=== PATIENT | male | born 1995 | race Caucasian/White ===

== ENCOUNTER 2024-05-07 08:42 | Emergency (ER) | payer OTHER, SELFPAY ==
[2024-05-07 08:47] VITALS: BP 148/88; PULSE 99; TEMP 37.3; O2SAT 100; BMI 27.3
--- NOTE | 2024-05-07 09:01 | US_ITS ---
The [address] [address] Patient Name: CALI LOPEZ MRN: [id number] date: 1995 Sex: M Assigned Patient Location: ER Current Patient Location: ER Accession/Order Number: [id number] Exam Date: 05/07/2024 09:01 Report Date: 05/07/2024 13:24 At the request of: REHKA SARAVIA Procedure: US scrotum doppler EXAM: US scrotum doppler HISTORY: Right testicular pain and swelling COMPARISON: None. TECHNIQUE: Scrotal ultrasound with grayscale and Doppler imaging. FINDINGS: Normal size appearance of the testicles with normal symmetric blood flow. No focal lesion, edema or evidence of torsion. Right testicle 4.4 x 2.9 x 4.2 cm. Left testicle 4.1 x 3.8 x 4.3 cm. Abnormal heterogeneous appearance right left epididymis with increased flow consistent with epididymitis. Graft no varicocele or hydrocele or hernia seen. US/US scrotum doppler IMPRESSION: 1. Normal appearance and symmetric blood flow within the testicles, no lesion or evidence of torsion.. 2. Hypervascular right and left epididymis consistent with epididymitis. Electronically authenticated by: KIMBERLEE HARRINGTON Date: 05/07/2024 13:24
--- NOTE | 2024-05-07 09:02 | ED.MALEGU1 ---
HPI - Male Genitourinary General Chief complaint: Urogenital-Male Stated complaint: GROIN PAIN Time Seen by Provider: 05/07/24 08:57 Source: patient Mode of arrival: walk-in Limitations: no limitations History of Present Illness HPI Narrative: 29-year-old male presents for scrotal pain and swelling. Both sides hurt but the right side feels swollen. There is been no trauma. He has had epididymitis in the past and is concerned about having that again. No fever or dysuria or back pain. No vomiting. Related Data Previous Rx's ?Medication ?Instructions ?Recorded acetaminophen 300 mg-codeine 30 mg 1 tab PO Q6H PRN pain 5 days #20 05/07/24 tablet tabs doxycycline hyclate 100 mg capsule 100 mg PO BID 10 days #20 caps 05/07/24 ibuprofen 800 mg tablet 800 mg PO Q8H PRN pain #20 tabs 05/07/24 Allergies Allergy/AdvReac Type Severity Reaction Status Date / Time No Known Drug Allergies Allergy Verified 05/07/24 08:50 Review of Systems ROS Narrative A ten point review of systems is negative except as noted above. Exam Narrative Exam Narrative: Nurses note and vital signs reviewed and patient is not hypoxic. General: The patient appears well and in no apparent distress. Skin: Warm, dry, no pallor noted. There is no rash noted. Head: Normocephalic, atraumatic Eye: Normal conjunctiva, no drainage Ears, Nose, Mouth, and Throat: oral mucosa is moist. Nares patent. Cardiovascular: Regular Rate and Rhythm Respiratory: Patient is in no distress, no accessory muscle use, lungs are clear to auscultation, no wheezing, rales or rhonchi Back: non-tender GI: Soft and nontender. No inguinal adenopathy : He has mild swelling in the right hemiscrotal area with tenderness. No skin rash. Musculoskeletal: The patient has no evidence of calf tenderness, no pitting edema, symmetrical pulses noted bilaterally Neurological: A&O, normal speech Psychiatric: Cooperative Constitutional Vital Signs, click to edit/add: Last Vital Signs Temp 99.5 F 05/07/24 13:17 Pulse 82 05/07/24 13:17 Resp 16 05/07/24 13:17 BP 115/62 05/07/24 13:17 Pulse Ox 99 05/07/24 13:17 O2 Del Method Room Air 05/07/24 08:47 Course Vital Signs Vital signs: Vital Signs Temperature 99.2 F 05/07/24 08:47 Pulse Rate 99 H 05/07/24 08:47 Respiratory Rate 18 05/07/24 08:47 Blood Pressure 148/88 H 05/07/24 08:47 Pulse Oximetry 100 05/07/24 08:47 Oxygen Delivery Method Room Air 05/07/24 08:47 Temperature 99.5 F 05/07/24 13:17 Pulse Rate 82 05/07/24 13:17 Respiratory Rate 16 05/07/24 13:17 Blood Pressure 115/62 05/07/24 13:17 Pulse Oximetry 99 05/07/24 13:17 Oxygen Delivery Method Room Air 05/07/24 08:47 MDM - Male Genitourinary MDM Narrative Medical decision making narrative: Bilateral epididymitis is identified. The patient states that he has no concern of an STD. Urinary probes are ordered and pending. He is placed on doxycycline and was referred to urology if symptoms do not improve. He has had epididymitis previously. Treatment diagnosis and follow-up were discussed thoroughly with the patient. Differential Diagnosis Differential diagnosis: Likely urinary tract infection, epididymitis and other (Testicular torsion) Lab Data Attestation: I reviewed the patient's lab results. Labs: Lab Results 05/07/24 05/07/24 Range/Units 09:10 09:36 WBC 12.6 H (4.0-11.0) 10^3/uL RBC 4.67 L (4.70-6.10) 10^6/uL Hgb 14.6 (14.0-18.0) g/dL Hct 41.9 L (42.0-54.0) % MCV 89.7 (80.0-94.0) fL MCH 31.3 (25.9-34.0) pg MCHC 34.8 (29.9-35.2) g/dL RDW 12.3 (11.0-15.0) % Plt Count 285 (150-450) 10^3/uL MPV 9.6 (9.5-13.5) fL Neut % (Auto) 80.3 H (43.0-75.0) % Lymph % (Auto) 9.8 L (20.5-60.0) % [place] % (Auto) 9.3 (1.7-12.0) % Eos % (Auto) 0.2 L (0.9-7.0) % Baso % (Auto) 0.2 (0.2-2.0) % Neut # (Auto) 10.1 H (1.4-6.5) 10^3/uL Lymph # (Auto) 1.2 (1.2-3.8) 10^3/uL Maries # (Auto) 1.2 H (0.3-0.8) 10^3/uL Eos # (Auto) 0.0 (0.0-0.7) 10^3/uL Baso # (Auto) 0.0 (0.0-0.1) 10^3/uL Abs Immat Gran (auto) 0.03 (0.00-0.03) 10^3/uL Imm/Tot Granulo (auto) 0.2 (0.0-0.5) % Sodium 139 (136-145) mmol/L Potassium 3.7 (3.5-5.1) mmol/L Chloride 100 (98-107) mmol/L Carbon Dioxide 27.0 (21.0-32.0) mmol/L Anion Gap 15.7 BUN 11.0 (7.0-18.0) mg/dL Creatinine 1.05 (0.70-1.30) mg/dL Est GFR ( Amer) >60 (>=60) Est GFR (Non-Af Amer) >60 (>=60) BUN/Creatinine Ratio 10.5 Glucose 81 (74-106) mg/dL Calcium 9.4 (8.5-10.1) mg/dL Urine Color Dk. yellow (YELLOW) Urine Clarity Clear (CLEAR) Urine pH 6.5 (5.0-9.0) Ur Specific [place] 1.025 (1.005-1.025) Urine Protein Trace (NEG/TRACE) mg/dL Urine Glucose (UA) Negative (NEGATIVE) mg/dL Urine Ketones Negative (NEGATIVE) mg/dL Urine Occult Blood Negative (NEGATIVE) Urine Nitrite Negative (NEGATIVE) Urine Bilirubin Negative (NEGATIVE) Urine Urobilinogen 0.2 (0.2-1.0) EU/dL Ur Leukocyte Esterase Negative (NEGATIVE) Urine RBC 0-2 (0-2) #/HPF Urine WBC 2-5 A (NONE SEEN) #/HPF Ur Squamous Epith Cells None seen (NONE/RARE) #/LPF Urine Crystals None seen (None Seen) #/HPF Urine Bacteria Trace A (NONE SEEN) #/HPF Urine Casts None seen (NONE SEEN) #/LPF Urine Mucus Moderate A (NONE SEEN) Imaging Data Scrotal ultrasound: Radiologist's impression: ITS Impressions Scrotum Ultrasound 05/07/24 09:01 IMPRESSION: 1. Normal appearance and symmetric blood flow within the testicles, no lesion or evidence of torsion.. 2. Hypervascular right and left epididymis consistent with epididymitis. Electronically authenticated by: KIMBERLEE HARRINGTON Date: 05/07/2024 13:24 Discharge Plan Discharge Stand Alone Forms: Portal Instructions Chief Complaint: Urogenital-Male Clinical Impression: Acute epididymitis Patient Disposition: Home, Self-Care Time of Disposition Decision: 13:38 Condition: Good Mode of Transportation: Private Vehicle Prescriptions / Home Meds: New doxycycline hyclate 100 mg capsule 100 mg PO BID 10 Days Qty: 20 0RF acetaminophen-codeine 300-30 mg tablet 1 tab PO Q6H PRN (Reason: pain) 5 Days Qty: 20 0RF ibuprofen 800 mg tablet 800 mg PO Q8H PRN (Reason: pain) Qty: 20 0RF Print Language: Icelandic Instructions: Epididymitis (ED) Referrals: Physician,Non-Staff, MD [Primary Care Provider] - 1 week Roque Washington MD [Physician] - As needed
[2024-05-07 09:35] LABS: Bilirubin Urine NEGATIVE (NEGATIVE); Blood Urine NEGATIVE (NEGATIVE); Clarity Urine CLEAR (CLEAR); Color Urine DK. YELLOW (YELLOW); Glucose Urine UA NEGATIVE (NEGATIVE); Ketones Urine NEGATIVE (NEGATIVE); Leukocyte Esterase Urine NEGATIVE (NEGATIVE); Nitrite Urine NEGATIVE (NEGATIVE); Protein Urine TRACE mg/dL (NEG/TRACE); Specific Gravity Urine 1.025 (1.005-1.025); Urobilinogen Urine 0.2 EU/dL (0.2-1.0); pH Urine 6.5 (5.0-9.0)
[2024-05-07 09:43] LABS: Bacteria Urine TRACE #/HPF (NONE SEEN); Mucus Urine MODERATE (NONE SEEN); RBC Urine 0-2 #/HPF (0-2)
[2024-05-07 09:44] LABS: Basophils Percent Auto 0.2 % (0.2-2.0); Eosinophils Percent Auto 0.2 % (0.9-7.0); Hematocrit 41.9 % (42.0-54.0); Hemoglobin 14.6 g/dL (14.0-18.0); Immature Granulocytes Abs Auto 0.03 10^3/uL (0.00-0.03); Immature Granulocytes Pct Auto 0.2 % (0.0-0.5); Lymphocytes Absolute Auto 1.2 10^3/uL (1.2-3.8); Lymphocytes Percent Auto 9.8 % (20.5-60.0); Mean Corpuscular HGB Conc 34.8 g/dL (29.9-35.2); Mean Corpuscular Hemoglobin 31.3 pg (25.9-34.0); Mean Corpuscular Volume 89.7 fL (80.0-94.0); Mean Platelet Volume 9.6 fL (9.5-13.5); Monocytes Absolute Auto 1.2 10^3/uL (0.3-0.8); Monocytes Percent Auto 9.3 % (1.7-12.0); Neutrophils Absolute Auto 10.1 10^3/uL (1.4-6.5); Neutrophils Percent Auto 80.3 % (43.0-75.0); Platelet Count 285 10^3/uL (150-450); Red Blood Count 4.67 10^6/uL (4.70-6.10); Red Cell Distribution Width 12.3 % (11.0-15.0); White Blood Count 12.6 10^3/uL (4.0-11.0)
[2024-05-07 09:44] LABS: Cast Seen? NONE SEEN #/LPF (NONE SEEN); Crystals Seen? None Seen #/HPF (None Seen)
[2024-05-07 09:46] LABS: Squamous Epithelial Cell Urine NONE SEEN #/LPF (NONE/RARE)
[2024-05-07 10:04] LABS: Anion Gap 15.7; BUN Creatinine Ratio 10.5; Calcium 9.4 mg/dL (8.5-10.1); Chloride 100 mmol/L (98-107); Estimated GFR (African America >60 (>=60); Estimated GFR (Non-African Ame >60 (>=60); Glucose 81 mg/dL (74-106); Potassium 3.7 mmol/L (3.5-5.1); Sodium 139 mmol/L (136-145)
[2024-05-07 11:55] VITALS: BP 133/68; PULSE 85; O2SAT 100
[2024-05-07] MEDS: IBUPROFEN 400 MG TABLET 800 MG PO (12:11)
[2024-05-07 13:17] VITALS: BP 115/62; PULSE 82; TEMP 37.5; O2SAT 99
[2024-05-07] MEDS: DOXYCYCLINE MONOHYDRATE 100 MG CAPSULE PO (13:44)
[2024-05-09 21:11] LABS: Neisseria gonorrhoeae, NAA Negative (Negative)
== END 2024-05-07 13:51 | disposition home or self-care (01) ==
PROVIDERS: Emergency Provider Emergency Medicine
DX: N45.1 Epididymitis (principal)
CPT/HCPCS: 36415; 76870; 80048; 81001; 85025; 87491; 87591; 93976; 99285

== ENCOUNTER 2025-08-17 07:53 | Outpatient (OUT) | payer OTHER, SELFPAY ==
--- OUTSIDE RECORDS SUMMARY | 2025-08-17 07:56 | XMS_ITS | CCD ---
Author Organization [facility] Care Team Providers Care Maint Mechanic Name Role Phone Surendra Oliveira Unavailable GUANAKITO LEWIS Primary Care Physician TEE, DR CHANDLER Attending Unavailable TEE, DR CHANDLER Consulting Unavailable TEE, DR CHANDLER Admitting Unavailable TEE, DR CHANDLER Attending Unavailable TEE, DR CHANDLER Consulting Unavailable TEE, DR CHANDLER Admitting Unavailable SURENDRA OLIVEIRA Primary Care Physician [phone] Roque WASHINGTON Attending Unavailable WASHINGTON, Roque Medina Admitting Unavailable WASHINGTON, Roque Medina Attending Unavailable WASHINGTON, Roque Medina Attending Unavailable WASHINGTON, Roque Medina Admitting Unavailable WASHINGTON, Roque Medina Attending Unavailable WASHINGTON, Roque Medina Attending Unavailable WASHINGTON, Roque Medina Attending Unavailable WASHINGTON, Roque Medina Admitting Unavailable WASHINGTON, Roque Medina Attending Unavailable Allergies Allergy ClassificationReported Allergen(s)Allergy TypeDate of OnsetReaction(s) Facility (3 sources)No Known Medication Allergies; Translations: [No Known Medication Allergies]Propensity to adverse reactions (disorder)[facility] Medications Current Medications MedicationDrug Class(es)DatesSig (Normalized)Sig (Original)aluminum chloride 200 mg/ml topical solution (4 sources)Start: 81-44-7616Bdyiza 20 % 1 application at bedtime Externally q HS x 3 days then twice weekly for 30 days Activecephalexin 500 mg oral capsule (1 source)Cephalosporin AntibacterialStart: 07-20-2025 End: 61-82-2202ktqu 1 capsule by mouth every twelve hoursKeflex 500 mg Cap 500 mg = 1 cap(s), Oral, q12hr, Start morning of the procedure., X 5 day(s), # 10 cap(s), Refills(s) 0, Pharmacy: [facility]/pharmacy #[id number], 177, cm, 07/20/25 10:11:00 EDT, Height/Length Dosing, 91.7, kg, 07/20/25 10:11:00 EDT, Weight Dosing Start Date: 07/20/25 Stop Date: 07/25/25 Status: Ordered Quantity: 10.0 Unit: cap(s) Repeat number: 1predniSONE 20 mg oral tablet (1 source)Start: 91-04-8084khqyfrPVVC 20 MG 1 tablet tid w/ food x 2 days then bid w/ food x 2 days then qd w/ food x 2 days Orally as directed for 6 days Apr, ActivetiZANidine 4 mg oral tablet (1 source)Central alpha-2 Adrenergic AgonistStart: 45-82-0033akJUKujwzf HCl 4 MG 1/2 - 1 Orally every 8 hours as needed, may cause sedation for 5 days Apr, Active Problems Problem ClassificationProblemDateDocumented DateEpisodic/ChronicContraceptive and procreative management (1 source)Contraception status; Translations: [Encounter for other general counseling and advice on contraception]Onset: 27-19-9171GnxospvcGacyhxahddfhw symptoms and ill-defined conditions (1 source)Microscopic hematuria; Translations: [Other microscopic hematuria] Onset: 50-54-5600BmeczizdVvlvplty; including migraine (4 sources)Migraine; Translations: [Migraine, unspecified, not intractable, without status migrainosus]ChronicMalaise and fatigue (5 sources)Other fatigue; Translations: [OTHER FATIGUE]Onset: 69-67-2291Afsffvud Other endocrine disorders (1 source)Testicular hypofunction; Translations: [Testicular hypofunction]Onset: 08-26-6122AvwcihqYaorg male genital disorders (2 sources)Vwwzkuzcv71-07-0515AonjexoTnpkp male genital disorders (2 sources)H/O: male genital disorder; Translations: [Personal history of other diseases of male genital organs]Onset: 96-16-4198IejshwwyWpzel nutritional; endocrine; and metabolic disorders (1 source)OverweightEpisodicOther skin disorders (1 source)Primary focal hyperhidrosis, axillaEpisodicOther upper respiratory disease (4 sources)Allergic rhinitis due to pollen; Translations: [Allergic rhinitis due to pollen]ChronicResidual codes; unclassified (2 sources)Reduced nhgeeg49-55-3788ZdhqshzgQgkxbjxcadb; intervertebral disc disorders; other back problems (2 sources)Acute back pain with sciatica; Translations: [Lumbago with sciatica, left side]EpisodicSprains and strains (4 sources)Strain of muscle, fascia and tendon of the posterior muscle group at thigh level, left thigh, initial encounter; Translations: [Tear of left hamstring, initial encounter]Episodic Results Test NameValueInterpretationReference RangeFacilityC Urineon 67-72-5965Ziapelwn identified Cx Nom (U)Microbiology PROCEDURE: Urine Culture [R1] SOURCE: U CleanCatch BODY SITE: COLLECTED DATE/TIME: 07/20/2025 11:20 EDT RECEIVED DATE/TIME: 07/20/2025 17:40 EDT START DATE/TIME: 07/20/2025 17:40 EDT FREE TEXT SOURCE: KOLE ESTRADA, Roque WASHINGTON MD, Roque Medina FINAL REPORTS Final Report [] Verified Date/Time: 07/22/2025 09:21 EDT 500 cfu/ml Mixed skin contaminants Performing Locations R1: This test was performed at: [facility], [address] [place] [address], [address] , , VcpzgrUadnhvSumma Health Akron CampusComment on above:Performed By: #### [id number] #### [facility] [address] [place] [address]Eflzcvm Totalon 73-02-0834Wjhfybqrd Xfy237 ng/dLInvalid Interpretation Ndqp301-991CgfluaGlenbeigh HospitalComment on above:Result Comment: Adult male reference interval is based on a population of healthy nonobese males (BMI <30) between 19 and 39 years old. Cristina et.al. JCEM 2017,102;0247-1378. PMID: [id number]. Performed at: [facility] [address] [place] [address] [id number] PhD Rolando JerryPerformed By: #### [id number] #### [facility] [address] [place] [address]Ozxxhtqhwq with Microon 28-71-5322Xceaw (U)YellowNormalYellow [facility] HospitalComment on above:Order Comment: Order added by Astrid ExpertResult Comment: Microscopic readings are only performed on those samples that meet specific criteria set forth by [facility].Performed By: #### [id number] #### [facility] [address], [place] [address]Zhbwbnb (U) [Mass/Vol]NegativeNormalNegativeGlenbeigh HospitalComment on above:Order Comment: Order added by Astrid Expert Performed By: #### [id number] #### [facility] [address] [place], [place] [address]Funknuh Ql (U)NegativeNormalNegWadsworth-Rittman Hospital Comment on above:Order Comment: Order added by Astrid ExpertPerformed By: #### [id number] #### [facility] [address], [place] [address]JC Blood1+ mg/dLAbnormSelect Medical Specialty Hospital - Columbus Comment on above:Order Comment: Order added by Astrid ExpertPerformed By: #### [id number] #### [facility] [address] [place], [place] [address]QN ClarityClearNormalClearGlenbeigh HospitalComment on above:Order Comment: Order added by Astrid ExpertPerformed By: #### [id number] #### [facility] [address], [place] [address]XC Leuk EstNegativeNormalNegWadsworth-Rittman Hospital Comment on above:Order Comment: Order added by Astrid ExpertPerformed By: #### [id number] #### [facility] [address], [place] [address]SQ Mucous2+ CD:[id number] [facility]itus Medical CenterComment on above:Order Comment: Order added by Astrid ExpertPerformed By: #### [id number] #### [facility] [address], [place] [address]TK NitriteNegativeNormalNegativeG[facility]beigh Hospital Comment on above:Order Comment: Order added by Astrid ExpertPerformed By: #### [id number] #### [facility] [address], [place] [address]KR pH5.5Invalid Interpretation Code5.0-9.0[facility]igh HospitalComment on above:Order Comment: Order added by Astrid ExpertPerformed By: #### [id number] #### [facility] [address] [place], [place] [address]QF ProteinTraceAbnormalNegativeGlenbeigh Hospital Comment on above:Order Comment: Order added by Astrid ExpertPerformed By: #### [id number] #### [facility] [address] [place] [address]CI GPI9-42Vevihwlf4-0Exkjta Thomas B. Finan CenterComment on above:Order Comment: Order added by Astrid ExpertPerformed By: #### [id number] #### [facility] [address], [place] [address]XJ Spec Grav1.025Invalid Interpretation Code1.005-1.030G[facility]igh HospitalComment on above:Order Comment: Order added by Astrid ExpertPerformed By: #### [id number] #### [facility] [address], [place] [address]GH Squam Epithelial0-2Invalid Interpretation CodeGlenbeigh HospitalComment on above:Order Comment: Order added by Astrid Expert Performed By: #### [id number] #### [facility] [address], [place] [address]TK UrobilinogenNegativeNormalNegativeGlenbeigh HospitalComment on above:Order Comment: Order added by Astrid ExpertPerformed By: #### [id number] #### [facility] [address], [place] [address]FZ SFG8-4Tiwnei3-6XwvplmBethesda North HospitalComment on above: Order Comment: Order added by Astrid ExpertPerformed By: #### [id number] #### [facility] [address], [place] [address]Wehiguamornb (U) [Mass/Vol]NegativeNormalNegativeGlenbeigh HospitalComment on above:Order Comment: Order added by Astrid Expert Performed By: #### [id number] #### [facility] [address], [place] [address]Ubrxkqqqmk with Micro SPon 99-07-2292HN Spec DescClean Catch NormalGlenbeigh HospitalComment on above:Performed By: #### [id number] #### [facility] [address] [place], [place] [address]Lwywsvl Office/Clinic Noteon 68-76-0484Kekeqwx Office/Clinic NoteUrology Office/Clinic Note Chief Complaint vasectomy HPI Staff 30 yr old male here for vasectomy consult. hx of epididymitis- about 2 yrs ago, burning w/ urination a few times. no issues since, did finish abx Pt. denies having incontinence Pt. denies having pain with urination recently Pt. denies having gross hematuria Pt. denies having abd pain Pt. denies having flank pain pt has 2 biological children, 9 yrs and 2 weeks old, pt has 2 other children he cares for with his partner History of Present Illness Tests reviewed: UA I have reviewed the previous health record information and history for this patient. I have reviewed and verified the staff HPI to be accurate for this encounter. Review of Systems PHQ Score Initial Depression Screen Score: 0 SCORE ROS - Provider Constitutional: denies weight loss, denies hot flashes. Eyes: denies eye problems. Gastrointestinal: denies nausea, denies vomiting. Cardiovascular: denies chest pain or angina. Integumentary: no dryness Musculoskeletal: denies musculoskeletal symptoms. ENMT: denies otolaryngeal symptoms. Respiratory: no shortness of breath. Heme/Lymph: denies easy bleeding tendency, denies easy bruising tendency. Psychiatric: no confusion, no anxiety. Genitourinary: See HPI. Physical Exam Vitals & Measurements T: 36.4 ???C(Tympanic) HR: 90(Peripheral) RR: 16 BP: 140/100 HT: 70 in HT: 177 cm WT: 202.164 lb WT: 91.7 kg BMI: 29.27 General Appearance: alert, no distress, well nourished, well developed adult. : wnl. able to isolate both vas deferens. Assessment/Plan Renu is a 30 yo male new pt here for vasectomy consultation. Pt accompanied by an adult female today. MARY 20. IPSS 0. 1. Encounter for vasectomy counseling (Z30.09: Encounter for other general counseling and advice oncontraception) UA neg. Pt has 2 children. Educational pamphlet provided. PE: wnl. able to isolate both vas deferens. -Will schedule Vasectomy. The procedural risks, benefits, details, and treatment alternatives of sterilization have been discussed with the patient today. He understands this procedure is considered permanent, even though vasectomy reversals can be performed. There is no guarantee of successful reversal resulting in , however. Risks discussed include bleeding, infection, failure with in about 1:2500, post-vasectomy syndrome (chronic pain in the testicle or scrotum), and erection problems, among others. Despite these risks, he wishes to proceed. He also understands that he is not considered sterile until a negative semen sample has been received after about 2-3 months after the vasectomy. Full informed consent has been obtained. Will order Local anesthesia. Prophylactic abx and other meds sent to [facility]. Will need haulpak driver if Valium is taken. 2. Microhematuria (R31.29: Other microscopic hematuria) UA shows moderate blood wo signs of infection. Denies gross hematuria. No smoking hx. -Send urine for micro and cx 3. History of epididymitis (Z87.438: Personal history of other diseases of male genital organs) Two yrs ago, burning w urination. Sx resolved with abx. No issues since. 4. 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 Reports a yr ago his T level was low. Will repeat today. -T level to be drawn IO today (around 11:30 am) Follow-up With When Contact Information KOLE ESTRADA, Roque Medina, [facility] [address], [place] [address]- Additional Instructions: schedule Vasectomy Patient Education Contraception Choices I, Sharla Trent, personally scribed for Dr. Washington on 07/20/2025 11:17:05. . Documentation recorded by the scribe, Sharla Trent, accurately reflects the services(s) I performed and decisions made by me. Authenticated by Dr. Washington on 07/20/2025 11:25:02. Problem List/Past Medical History Ongoing Decreased libido Erectile dysfunction History of epididymitis Historical No qualifying data Medications No active medications Allergies No Known Medication Allergies Social History Alcohol Never., 07/19/2025 Substance Abuse Never., 07/19/2025 Tobacco - No Risk, 02/11/2023 Never (less than 100 in lifetime) Tobacco Use:. Never Smokeless Tobacco Use:., 07/20/2025 Family History Family history is negative Lab Results Ambulatory Point of Care Results Bilirubin Urine Dipstick: Negative (07/20/25 10:15:00) Blood Urine Dipstick: 2+ Moderate (07/20/25 10:15:00) Glucose Urine Dipstick: Negative (07/20/25 10:15:00) Ketones Urine Dipstick: Negative (07/20/25 10:15:00) Leukocytes Urine Dipstick: Negative (07/20/25 10:15:00) Nitrite Urine Dipstick: Negative (07/20/25 10:15:00) Protein Urine Dipstick: 1+ (30 mg/dl) (07/20/25 10:15:00) Specific [place] Urine Dipstick: 1.025 (07/20/25 10:15:00) Urine Appearance Urine Dipstick: Clear (07/20/25 10:15:00) Urine (more content not included)...[facility] CenterComment on above:Result Comment: Electronically Signed By: Roque WASHINGTON MD\.br\Date and Time Signed: 07/20/25 11:25 EDT\.br\Electronically Co-Signed By: Sharla Trent\.br\Date and Time Co-Signed: 07/20/25 11:17 EDT\.br\Electronically Co- Signed By: Sharla Trent\.br\Date and Time Co-Signed: 07/20/25 11:23 EDT TESTOSTERONE, TOTALon 53-29-7258Jqmzncziuwvq [Mass/Vol]319 ng/iYNeifgc476-525Fnz [facility] CenterComment on above:Result Comment: Adult male reference interval is based on a population of healthy nonobese males (BMI <30) between 19 and 39 years old. jennifer Evans.al. JCEM 2017,102;8686-3925. PMID: [id number].Performed By: #### TESTTOT #### [facility] [address] [place] [address] Dr. Tawny Torre AUTO DIFFon 67-26-5551RNZU #0.0 103/ulNormal0.0-0.1The [facility] CenterComment on above:Performed By: #### CBC #### [facility] [address] [place] [address] Dr. Tawny CooleyBasophils/100 WBC (Bld)0.5 %Normal0.2-2.0The [facility] Comment on above:Performed By: #### CBC #### [facility] [address] [place] [address] Dr. Tawny Schreiber #0.2 103/ulNormal0.0-0.7The [facility] CenterComment on above: Performed By: #### CBC #### [facility] [address] [place] [address] Dr. Tawny Ritchieosinophils/100 WBC (Bld)2.9 %Normal0.9-7.0The [facility] Comment on above:Performed By: #### CBC #### [facility] [address] [place] [address] Dr. Tawny Ritchierythrocyte distribution width (RBC) [Ratio]12.3 %Auqqsz18.0-15.0 The [facility] CenterComment on above:Performed By: #### CBC #### [facility] [address] [place] [address] Dr. Tawny CooleyHematocrit (Bld) [Volume fraction]47.1 %Czdhbd11.0-54.0The [facility] CenterComment on above:Performed By: #### CBC #### [facility] [address] [address] [address] Tawny CooleyHemoglobin (Bld) [Mass/Vol]15.7 g/gMZpwqvl20.0-18.0The [facility] on above:Performed By: #### CBC #### [facility] [address] [address] [address] Tawny Moreno #0.00 10e3/ulNormal0.00-0.03The [facility] Medical CenterCompaul [facility]liver [facility] on above:Performed By: #### CBC #### [facility] [address] [place] [address] Dr. Tawny Moreno %0.0 %Normal0.0-0.5The [facility] on above: Performed By: #### CBC #### [facility] [address] [place] [address] Dr. Tawny Carballo #2.1 103/ulNormal1.2-3.8The [facility] on above:Performed By: #### CBC #### [facility] [address] [place] [address] Dr. Tawny Cevalloshocytes/100 WBC (Bld)34.9 %Gxzrrn22.5-60.0The [facility] on above:Performed By: #### CBC #### [facility] [address] [address] [address] Tawny FaustinUAL DIFF REQNONormalThe [facility] CenterComment on above: Performed By: #### CBC #### [facility] [address] [place] [address] Dr. Tawny Carmen (RBC) [Entitic mass]30.2 eeXufust68.9-34.0The [facility] on above:Performed By: #### CBC #### [facility] [address] [place] [address] Dr. Tawny Carmen (RBC) [Mass/Vol]33.3 g/bGVvbysu66.9-35.2The [facility] HospitalComment on above:Performed By: #### CBC #### [facility] [address] [address] [address] Tawny CarmenV (RBC) [Entitic vol]90.6 hAOasthg78.0-94.0The [facility] CenterComment on above:Performed By: #### CBC #### [facility] [address] [place] [address] Dr. Tawny Jain #0.7 103/ulNormal0.3-0.8The [facility] CenterComment on above:Performed By: #### CBC #### [facility] [address] [place] [address] Dr. Tawny Cartyocytes/100 WBC (Bld)12.1 %Critically high1.7-12.0The [facility] CenterComment on above:Performed By: #### CBC #### [facility] [address] [place] [address] Dr. Tawny Núñez #2.9 103/ulNormal1.4-6.5The [facility] CenterComment on above:Performed By: #### CBC #### [facility] [address] [place] [address] Dr. Tawny Austinutrophils/100 WBC (Bld)49.6 %Hadhsw46.0-75.0The [facility] CenterComment on above:Performed By: #### CBC #### [facility] [address] [place] [address] Dr. Tawny Villalet mean volume (Bld) [Entitic vol]9.7 fLNormal9.5-13.5The [facility] CenterComment on above:Performed By: #### CBC #### [facility] [address] [place] [address] Dr. Tawny CooleyPLT345 103/ohHlpcdb056-710Tcr [facility] CenterComment on above: Performed By: #### CBC #### [facility] [address] [place] [address] Dr. Tawny CooleyRBC5.20 106/ulNormal4.70-6.10The [facility] on above:Performed By: #### CBC #### [facility] [address] [address] [address] Tawny CooleyWBC5.9 103/ulNormal4.0-11.0The [facility] on above: Performed By: #### CBC #### [facility] [address] [address] [address] Tawny CejaID PROFILEon 84-37-5742ZWHA-HDL RATIO NORMSEE [facility] on above:Result Comment: 3.3 - 4.4 LOW RISK 4.4 - 7.1 AVERAGE RISK 7.1 - 11.0 MODERATE RISK >11.0 HIGH RISKPerformed By: #### TSH, CMP, LIPID #### [facility] [address] [place] [address] Dr. Tawny CooleyCholesterol [Mass/Vol]203 mg/dLCritically high<=200The [facility] on above:Performed By: #### TSH, CMP, LIPID #### [facility] [address] [place] [address] Dr. Tawny Olsonesterol in HDL [Mass/Vol]47 mg/wITyyutn36-22Upl [facility] on above:Performed By: #### TSH, CMP, LIPID #### [facility] [address] [place] [address] Dr. Tawny Olsonesterol in LDL [Mass/Vol]135.4 mg/dLDayton Osteopathic Hospital on above:Performed By: #### TSH, CMP, LIPID #### [facility] [address] [place] [address] Dr. Tawny Olsonestertawny.total/Cholesterol in HDL [Mass ratio]4.3 {ratio} NormalBucyrus Community Hospital on above:Performed By: #### TSH, CMP, LIPID #### [facility] [address] [place] [address] Dr. Tawny Toussaint NORMAL> or = 60 mg/dl - LOW CARDIOVASCULAR RISK <40 mg/dl - HIGH CARDIOVASCULAR RISKNoMercy Health Allen HospitalComment on above:Performed By: #### TSH, CMP, LIPID #### [facility] [address] [address] [address] Tawny Cullen CALC NORMALSEE BELOWSelect Medical Specialty Hospital - Southeast OhioComment on above:Result Comment: <100 mg/dl OPTIMAL 100 - 129 mg/dl NEAR OR ABOVE OPTIMAL 130 - 159 mg/dl BORDERLINE HIGH 160 - 189 mg/dl HIGH >190 mg/dl VERY HIGH Performed By: #### TSH, CMP, LIPID #### [facility] [address] [address] [address] Tawny CooleyTriglyceride [Mass/Vol]103 mg/dLNormal<=150The [facility] Comment on above:Performed By: #### TSH, CMP, LIPID #### [facility] [address] [address] [address] Tawny CooelyVLDL CALC20.6 mg/dLNoMercy Health Allen HospitalComment on above: Performed By: #### TSH, CMP, LIPID #### [facility] [address] [place] [address] Dr. Tawny CooleyPRONazia 14(COMP METB)on 69-36-8517Ktlyaiv [Mass/Vol]4.0 g/dLNormal 3.4-5.0The [facility] on above:Performed By: #### TSH, CMP, LIPID #### [facility] [address] [address] [address] Tawny CooleyAlbumin/Globulin [Mass ratio]1.1 {ratio}NormalThe [facility] Medical CenterCompaul oliver memorial hospital on above:Performed By: #### TSH, CMP, LIPID #### [facility] [address] [address] [address] Tawny Rico [Catalytic activity/Vol]103 U/MMkcoma46-218Buw [facility] on above:Performed By: #### TSH, CMP, LIPID #### [facility] [address] [address] [address] Tawny Curran [Catalytic activity/Vol]37 U/AOnmppq75-78Utl [facility] HospitalComment on above:Performed By: #### TSH, CMP, LIPID #### [facility] [address] [address] [address] Tawny Marques gap [Moles/Vol]12.9 mmol/LNormalThe [facility] Comment on above:Performed By: #### TSH, CMP, LIPID #### [facility] [address] [place] [address] Dr. Tawny CooleyAST [Catalytic activity/Vol]15 U/MJeazod44-28Trr [facility] CenterComment on above:Performed By: #### TSH, CMP, LIPID #### [facility] [address] [place] [address] Dr. Tawny CooleyBilirubin [Mass/Vol]0.4 mg/dLNormal0.2-1.0[facility] Comment on above:Performed By: #### TSH, CMP, LIPID #### [facility] [address] [place] [address] Dr. Tawny CooleyCalcium [Mass/Vol]9.0 mg/dLNormal8.5-10.1The [facility] Comment on above:Performed By: #### TSH, CMP, LIPID #### [facility] [address] [place] [address] Dr. Tawny CooleyChloride [Moles/Vol]105 mmol/HQjlmbz27-920Flp [facility] Comment on above:Performed By: #### TSH, CMP, LIPID #### [facility] [address] [place] [address] Dr. Tawny CooleyCO2 [Moles/Vol]28.1 mmol/YJubaef66.0-32.0The [facility] Comment on above:Performed By: #### TSH, CMP, LIPID #### [facility] [address] [place] [address] Dr. Tawny CooleyCreatinine [Mass/Vol]0.99 mg/dLNormal0.70-1.30The [facility] Center[facility] on above:Performed By: #### TSH, CMP, LIPID #### [facility] [address] [place] [address] Dr. Yilan ChangEGFR-AF SYRIAN>60Normal>=60The [facility] CenterComment on above:Performed By: #### TSH, CMP, LIPID #### [facility] [address] [place] [address] Dr. Tawny RitchieGFR-NON AF SYRIAN>60Normal>=60The [facility] Center[facility] on above:Performed By: #### TSH, CMP, LIPID #### [facility] [address] [place] [address] Dr. Tawny CooleyGlobulin (S) [Mass/Vol]3.8 g/dLNormalThe [facility] CenterComment on above:Performed By: #### TSH, CMP, LIPID #### [facility] [address] [place] [address] Dr. Tawny CooleyGlucose [Mass/Vol]85 mg/aKVivjpk75-543ZzxMer[facility] Comment on above:Performed By: #### TSH, CMP, LIPID #### [facility] [address] [place] [address] Dr. Tawny CooleyPotassium [Moles/Vol]4.0 mmol/LNormal3.5-5.1The [facility] Comment on above:Performed By: #### TSH, CMP, LIPID #### [facility] [address] [place] [address] Dr. Tawny CooleyProtein [Mass/Vol]7.8 g/dLNormal6.4-8.2[facility] Comment on above:Performed By: #### TSH, CMP, LIPID #### [facility] [address] [place] [address] Dr. Tawny CooleySodium [Moles/Vol]142 mmol/HHzltdj411-375GhfMercy Health – The [facility] Comment on above:Performed By: #### TSH, CMP, LIPID #### [facility] [address] [place] [address] Dr. Tawny CooleyUrea nitrogen [Mass/Vol]11.0 mg/dLNormal7.0-18.0The [facility] CenterComment on above:Performed By: #### TSH, CMP, LIPID #### [facility] [address] [place], [place] [address] Dr. Tawny CooleyUrea nitrogen/Creatinine [Mass ratio]11.1 mg/mgNormalThe [facility] CenterComment on above:Performed By: #### TSH, CMP, LIPID #### [facility] [address] [place], [place] [address] Dr. Tawny Lynn 15-19-6374IMA4.872 uIU/mLNormal0.358-3.740The [facility] CenterComment on above:Performed By: #### TSH, CMP, LIPID #### [facility] [address] [place], [place] [address] Dr. Tawny CooleyTSH0.872 uIU/mL0.358-3.740 uIU/mLNorth [facility] Other [facility]Be[facility] noteNort [facility] Other Vital Signs Date TimeVital SignValuePerforming QekwrmuobGwmnyrjx78-23-2506 13:15-0400Body sjslef432.34 cmBenjamin Ball Other [facility] Other 07-11-2023 13:15-0400Body mass index (BMI) [Ratio] 27.67 kg/q3Gmvkoplf Ball Other [facility] Other 07-11-2023 13:15-0400Body .99 kgBenjamin Ball Other [facility] Other 07-11-2023 13:15-0400Diastolic blood qyrsaaos41 mm[Hg] Surendra Ball Other [facility] Other 07-11-2023 13:15-0400Respiratory rate12 /minBenjamin Ball Other [facility] Other 07-11-2023 13:15-0400Systolic blood lokivsey167 mm[Hg] Surendra Ball Other [facility] Other 01-27-2023 16:30-0500Body frauoy160.34 cmBenjamin Ball Other noKing [facility] Other 01-27-2023 16:30-0500Body mass index (BMI) [Ratio] 28.42 kg/a6Wsqpcimt Ball Other noKing [facility] Other 01-27-2023 16:30-0500Body atzdci51.44 kgBenjamin Ball Other [employer] [employer] Other 01-27-2023 16:30-0500Diastolic blood kcdrbibw60 mm[Hg] Surendra Ball Other [facility] [employer] Other 01-27-2023 16:30-0500Respiratory rate18 /minBenjamin Ball Other [facility] Other 01-27-2023 16:30-7832XpJ0% (BldA) [Mass fraction]93 % Surendra Ball Other [facility] Other 01-27-2023 16:30-0500Systolic blood pvuscyli146 mm[Hg] Surendra Ball Other [facility] Other Encounters Encounter DateEncounter TypeCare ProviderFacilityStart: 81-69-4713jpeuomvhtb Roque WASHINGTONFacility:CD:[id number]: 07-31-2025 End: 58-60-9999bcpvovueroIkhkwrw R WATERSFacility:CD:[id number]: 07-20-2025 End: 74-21-8049xebwzhllfpSxqkcjv R WATERSFacility:FTMCStart: 07-20-2025 End: 76-98-3204criuyuleaxKqtaqcj R WATERSFacility:EU [facility] CenterueStart: 07-20-2025 End: 63-87-5901Cdqaxei encounter procedurePatricerin R KOLE [facility] start: 03-93-2594qegapzjlsxXgoucdn WATERSFacility:EU [facility]art: 04-20-2023 End: 78-56-7429udixahjihsKyuzcudx Ball Other [employer] [facility] Other Start: 51-14-1972Inlqle outpatient visit 15 minutes Surendra BallFPG Ball [facility] ClinicStart: 02-11-2023 End: 97-86-6741Ylpafzk encounter procedureGUANAKITO Mary JOSHUA [facility] Start: 02-06-2023 End: 99-40-9014flwiqagbbsLV SURENDRA BALLFacility:S9Kcewa: 02-04-2023 End: 77-31-6577mveayypbqkSgeccdsh Ball Other [facility] Other Start: 43-08-4228Luvwfdmsp encounterBenjamin BallFPG Ball Medical ClinicStart: 08-28-2516Bzxxwsrqi for general adult medical examination without abnormal findingsDR SURENDRA OLIVEIRASouthview Medical Centertart: 11-11-2022 End: 79-73-4926sofrtmrxehZV SURENDRA BALLFacility:H8Pnzsj: 11-11-2022 End: 06-93-6639Nwjamkyyd for general adult medical examination without abnormal findingsDR SURENDRA BALLFacility:S5Tbcgn: 11-09-2022 End: 84-28-2653viedhspierAabcppue Ball Other [facility] Other Start: 55-70-1955Beirwfhpi encounterBenjamin BallFPG Ball Medical ClinicStart: 11-06-2022 End: 05-93-0491humihmzfriLzlpvtlj Ball Other [facility] Other Start: 58-01-5409Byfewvuib for general adult medical examination without abnormal findingsSurendra Oliveira [facility] ClinicStart: 72-95-2301Kyucbmu encounter procedureBetano Oliveira Medical ClinicStart: 07-82-6094Dgkhrpbl preventive med est patient 18-39 yrsBemar OliveiraTUBA CITY REG[facility] Plan of Treatment DateCare ActivityDetailAuthorStart: 36-92-4155tqixxkbebnGzikjalrouSyvgjkax:[facility] [place] Payers DatePayer CategoryPayerPolicy [id number] [id number] 2.0.1.2441[id number] 2.0.1.183090.[id number] 2.0.1.82643[id number] 2.0.1.117476.[id number] 2.0.1.93952[id number] 2.0.1.3260[id number] 2.840.1.226960.19 Private Health [id number]-[id number] Social History DateTypeDetailFacilitySex Assigned At [facility] Hospitaltart: 02-11-2023 End: 38-87-1985Ulgursa smoking statusNever smoked tobacco (finding)[facility] HealthT[facility]acc smoking statusNeverSumma HealthSexual OrientationExec[facility] [place] sexMale (finding)[facility] Clinical Notes 11-06-2022 to 07-20-2025 Note Date & JjtdZvnsHljumoik10-26-3148 Hospital Discharge instructions Patient Education 07/20/2025 11:15:41 Contraception Choices Contraception Choices Contraception, also called control, refers to methods or devices that prevent . Hormonal methods Contraceptive implant A contraceptive implant is a thin, plastic tube that contains a hormone that prevents . Itis different from an intrauterine device (IUD). It is inserted into the upper part of the arm by a health care provider. Implants can be effective for up to 3 years. Progestin-only injections Progestin-only injections are injections of progestin, a synthetic form of the hormone progesterone. They are given every 3 months by a health care provider. control pills control pills are pills that contain hormones that prevent . They must be taken oncea day, preferably at the same time each day. A prescription is needed to use this method of contraception. control patch The control patch contains hormones that prevent . It is placed on the skin and mustbe changed once a week for three weeks and removed on the fourth week. A prescription is needed to use this method of contraception. Vaginal ring A vaginal ring contains hormones that prevent . It is placed in the vagina for three weeksand removed on the fourth week. After that, the process is repeated with a new ring. A prescriptionis needed to use this method of contraception. Emergency contraceptive Emergency contraceptives prevent after unprotected sex. They come in pill form and can betaken up to 5 days after sex. They work best the sooner they are taken after having sex. Most emergency contraceptives are available without a prescription. This method should not be used as your only form of control. Barrier methods Male condom A male condom is a thin sheath that is worn over the penis during sex. Condoms keep sperm from going inside a woman's body. They can be used with a sperm- killing substance (spermicide) to increase their effectiveness. They should be thrown away after one use. Female condom A female condom is a soft, loose-fitting sheath that is put into the vagina before sex. The condom keeps sperm from going inside a woman's body. They should be thrown away after one use. Diaphragm A diaphragm is a soft, dome-shaped barrier. It is inserted into the vagina before sex, along with aspermicide. The diaphragm blocks sperm from entering the uterus, and the spermicide kills sperm. A diaphragm should be left in the vagina for 6 8 hours after sex and removed within 24 hours. A diaphragm is prescribed and fitted by a health care provider. A diaphragm should be replaced every 1 2 years, after giving , after gaining more than 15 lb (6.8 kg), and after pelvic surgery. Cervical cap A cervical cap is a round, soft latex or plastic cup that fits over the cervix. It is inserted intothe vagina before sex, along with spermicide. It blocks sperm from entering the uterus. The cap should be left in place for 6 8 hours after sex and removed within 48 hours. A cervical cap must be prescribed and fitted by a health care provider. It should be replaced every 2 years. Sponge A sponge is a soft, circular piece of polyurethane foam with spermicide in it. The sponge helps block sperm from entering the uterus, and the spermicide kills sperm. To use it, you make it wet and then insert it into the vagina. It should be inserted before sex, left in for at least 6 hours after sex, and removed and thrown away within 30 hours. Spermicides Spermicides are chemicals that kill or block sperm from entering the cervix and uterus. They can come as a cream, jelly, suppository, foam, or tablet. A spermicide should be inserted into the vagina with an applicator at least 10 15 minutes before sex to allow time for it to work. The process must be repeated every time you have sex. Spermicides do not require a prescription. Intrauterine contraception Intrauterine device (IUD) An IUD is a T-shaped device that is put in a woman's uterus. There are two types: Hormone IUD.This type contains progestin, a synthetic form of the hormone progesterone. This type can stay in place for 3 5 years. Copper IUD.This type is wrapped in copper wire. It can stay in place for 10 years. Permanent methods of contraception Female tubal ligation In this method, a woman's fallopian tubes are sealed, tied, or blocked during surgery to prevent eggs from traveling to the uterus. Hysteroscopic sterilization In this method, a small, flexible insert is placed into each fallopian tube. The inserts cause scartissue to form in the fallopian tubes and block them, so sperm cannot reach an egg. The procedure takes about 3 months to be effective. Another form of control must be used during those 3 months. Male sterilization This is a procedure to tie off the tubes that carry sperm (vasectomy). After the procedure, the mancan still ejaculate fluid (semen). Another form of control must be used for 3 months after the procedure. Natural planning methods Natural family planning In this method, a couple does not have sex on days when the woman could become . Calendar method In this method, the woman keeps track of the length of each menstrual cycle, identifies the days when can happen, and does not have sex on those days. Ovulation method In this method, a couple avoids sex during ovulation. Symptothermal method This method involves not having sex during ovulation. The woman typically checks for ovulation by watching changes in her temperature and in the consistency of cervical mucus. Post-ovulation method In this method, a couple waits to have sex until after ovulation. Where to find more information Centers for Disease Control and Prevention: www.cdc.gov Summary Contraception, also called control, refers to methods or devices that prevent . Hormonal methods of contraception include implants, injections, pills, patches, vaginal rings, and emergency contraceptives. Barrier methods of contraception can include male condoms, female condoms, diaphragms, cervical caps, sponges, and spermicides. There are two types of IUDs (intrauterine devices). An IUD can be put in a woman's uterus to prevent for 3 5 years. Permanent sterilization can be done through a procedure for males and females. Natural family planning methods involve nothaving sex on days when the woman could become . This information is not intended to replace advice given to you by your health care provider. Make sure you discuss any questions you have with your health care provider. Document Revised: 03/03/2021 Document Reviewed: 03/03/2021 [employer] Patient Education 2023 [employer]. Follow Up Care 06/28/2025 10:38:45 With:KOLE ESTRADA, Roque Medina, URL Address: [facility] [address] [place] [address]- When: Unknown [facility] 10-10-2025 NotePatient Education Obstetrics and Gynecology Contraception Choices Contraception, also called control, refers to methods or devices that prevent . Hormonal methods Contraceptive implant A contraceptive implant is a thin, plastic tube that contains a hormone that prevents . Itis different from an intrauterine device (IUD). It is inserted into the upper part of the arm by a health care provider. Implants can be effective for up to 3 years. Progestin-only injections Progestin-only injections are injections of progestin, a synthetic form of the hormone progesterone. They are given every 3 months by a health care provider. control pills control pills are pills that contain hormones that prevent . They must be taken oncea day, preferably at the same time each day. A prescription is needed to use this method of contraception. control patch The control patch contains hormones that prevent . It is placed on the skin and mustbe changed once a week for three weeks and removed on the fourth week. A prescription is needed to use this method of contraception. Vaginal ring A vaginal ring contains hormones that prevent . It is placed in the vagina for three weeksand removed on the fourth week. After that, the process is repeated with a new ring. A prescriptionis needed to use this method of contraception. Emergency contraceptive Emergency contraceptives prevent after unprotected sex. They come in pill form and can betaken up to 5 days after sex. They work best the sooner they are taken after having sex. Most emergency contraceptives are available without a prescription. This method should not be used as your only form of control. Barrier methods Male condom A male condom is a thin sheath that is worn over the penis during sex. Condoms keep sperm from going inside a woman's body. They can be used with a sperm- killing substance (spermicide) to increase their effectiveness. They should be thrown away after one use. Female condom A female condom is a soft, loose-fitting sheath that is put into the vagina before sex. The condom keeps sperm from going inside a woman's body. They should be thrown away after one use. Diaphragm A diaphragm is a soft, dome-shaped barrier. It is inserted into the vagina before sex, along with aspermicide. The diaphragm blocks sperm from entering the uterus, and the spermicide kills sperm. A diaphragm should be left in the vagina for 6?8 hours after sex and removed within 24 hours. A diaphragm is prescribed and fitted by a health care provider. A diaphragm should be replaced every 1?2 years, after giving , after gaining more than 15 lb (6.8 kg), and after pelvic surgery. Cervical cap A cervical cap is a round, soft latex or plastic cup that fits over the cervix. It is inserted intothe vagina before sex, along with spermicide. It blocks sperm from entering the uterus. The cap should be left in place for 6?8 hours after sex and removed within 48 hours. A cervical cap must be prescribed and fitted by a health care provider. It should be replaced every 2 years. Sponge A sponge is a soft, circular piece of polyurethane foam with spermicide in it. The sponge helps block sperm from entering the uterus, and the spermicide kills sperm. To use it, you make it wet and then insert it into the vagina. It should be inserted before sex, left in for at least 6 hours after sex, and removed and thrown away within 30 hours. Spermicides Spermicides are chemicals that kill or block sperm from entering the cervix and uterus. They can come as a cream, jelly, suppository, foam, or tablet. A spermicide should be inserted into the vagina with an applicator at least 10?15 minutes before sex to allow time for it to work. The process must be repeated every time you have sex. Spermicides do not require a prescription. Intrauterine contraception Intrauterine device (IUD) An IUD is a T-shaped device that is put in a woman's uterus. There are two types: ??? Hormone IUD.This type contains progestin, a synthetic form of the hormone progesterone. This type can stay in place for 3?5 years. ??? Copper IUD.This type is wrapped in copper wire. It can stay in place for 10 years. Permanent methods of contraception Female tubal ligation In this method, a woman's fallopian tubes are sealed, tied, or blocked during surgery to prevent eggs from traveling to the uterus. Hysteroscopic sterilization In this method, a small, flexible insert is placed into each fallopian tube. The inserts cause scartissue to form in the fallopian tubes and block them, so sperm cannot reach an egg. The procedure takes about 3 months to be effective. Another form of control must be used during those 3 months. Male sterilization This is a procedure to tie off the tubes that carry sperm (vasectomy). After t (more content not included)...[facility]07-11-2023 Evaluation note* Encounter Date Diagnosis Assessment Notes Treatment Notes Treatment Clinical Notes Apr, Acute left-sided low back pain with left-sided sciatica (ICD-10 - M54.42) The patient is instructed to avoid bending, twisting or lifting. They are to use intermittent heat and ice as needed. They may schedule a massage or gentle manipulation. They may safely use Tylenol as needed. PT if no improvement [facility] Other 05-04-2023 Evaluation + Plan note Diagnostic Tests Pending * Estrogens Total 02/11/23 * Estradiol Level 02/11/23 * Testosterone F&T 02/11/23 [facility]04-27-2023 Evaluation note* Encounter Date Diagnosis Assessment Notes Treatment Notes Treatment Clinical Notes Jan, Fatigue, unspecified type (ICD-1 0 - R53.83) [facility] Other 01-27-2023 Evaluation note* Encounter Date Diagnosis Assessment Notes Treatment Notes Treatment Clinical Notes Oct, Wellness examination (ICD-10 - Z 00.00) Healthy diet and exercise. Reviewed age-appropriate preventive testing recommended. 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 Initiate Drysol Oct,Overweight (ICD-10 - E66.3)This patient has been instructed on a low-fat, high-fiber diet. They are instructed to reduce calories, portion sizes and snacks. It is recommended that they exercise for 30 minutes, 3-5 times weekly. Oct,nnual physical exam (ICD-10 - Z00.00) [facility] [employer] [facility] Other Evaluation + Plan note Future Appointments Appointment Date:08/13/2025 03:30:00 PM Scheduled Provider:Roque WASHINGTON MD Location:[facility] Appointment Type:URO Office Visit [facility] evaluation noteNo InformationNortJefferson [facility] Other History general Narrative - Reported* Type Description Date Medical History Tear of left hamstring, initial encounter Medical HistorySeasonal allergic rhinitis due to pollenMedical HistoryMigraine Hospitalization HistoryNo Hospitalization history information [facility] Other History general Narrative - Reported* Type Description Date Medical History Tear of left hamstring, initial encounter Medical HistorySeasonal allergic rhinitis due to pollenMedical HistoryMigraine Hospitalization HistoryNo know Hospitalization history [facility] Other Hospital course Narrative No data available for this section [facility] No data available for this section [facility] No data available for this section [facility] Summary Purpose Family History No Family History Records Found No data available for this section No Family History Records FoundNo Family History Records FoundNo Family History Records FoundNo Family History Records FoundNo Family History Records FoundNo Family History Records Found Advance Directives No Advanced Directives Records FoundNo Advanced Directives Records FoundNo Advanced Directives Records FoundNo Advanced Directives Records FoundNo Advanced Directives Records FoundNo Advanced Directives Records FoundNo Advanced Directives Records Found Additional Source Comments REASON FOR VISIT (unrecogniz ed section and content) sciatica painTestosterone Or derSweating, wants blood work Patient Care team informatio n (unrecognized section and content) Personnel Name: GUANAKITO LEWIS CNP Address: Address: [address] [place] [address] [address] [place] [address] Personnel Name: SURENDRA OLIVEIRA DO Address: [address] [facility] [place], [place] [address] [employer]: (unrecognized sect ion and content) No Status Records FoundNo Status Records FoundNo Status Records FoundNo Status Records FoundNo Status Records FoundNo Status Records FoundNo Status Records Found INFORMATION SOURCE (unrecogn ized section and content) DATE CREATED AUTHOR 02/12/2023 [facility] DATE CREATED AUTHOR AUTHOR'S ORGANIZ ATION 07/22/2025 [facility] DATE CREATED AUTHOR AUTHOR'S ORGANIZ ATION 07/23/2025 [facility] DATE CREATED AUTHOR AUTHOR'S ORGANIZ ATION 07/29/2025 [facility] DATE CREATED AUTHOR AUTHOR'S ORGANIZ ATION 08/04/2025 [facility] DATE CREATED AUTHOR AUTHOR'S ORGANIZ ATION 08/09/2025 [facility] FOR RECORDS PERTAINING TO PATIENTS WHO ARE OR HAVE BEEN ENROLLED IN A CHEMICAL DEPENDENCY/SUBSTANCEABUSE PROGRAM, SOME INFORMATION MAY BE OMITTED. This clinical summary was aggregated from multiple sources. Caution should be exercised in using it in the provision of clinical care. This summary normalizes information from multiple sources, and as a consequence, information in this document may materially change the coding, format and clinical context of patient data. In addition, data may be omitted in some cases. CLINICAL DECISIONS SHOULD BE BASED ON THE PRIMARY CLINICAL RECORDS. [facility]. provides no warranty or guarantee of the accuracy or completeness of information in this document.
--- OUTSIDE RECORDS SUMMARY | 2025-08-17 07:57 | XMS_ITS | Clinical Summary ---
Author Organization [facility] Address [address] [place] [id number] Care Team Providers Care Port Drier Name Role Phone Unavailable Primary Care Provider Unavailabl e Allergies No known active allergies Medications MedicationSigDispense QuantityRefillsLast FilledStart DateEnd DateStatus naproxen sodium (ALEVE) 220 mg tablet Take 1 tablet by mouth twice daily.ctive Active Problems ProblemNoted DateDiagnosed DateS/P ACL yxrdinhrcvppbu02/19/2013S/P knee surgery 11/07/2012Sprain of cruciate ligament of knee10/12/2012Torn ACL08/18/2012 Family History Medical HistoryRelationCommentsDiabetesMaternal GrandmotherRelationStatus CommentsMaternal Grandmother Social History Tobacco UseTypesPacks/DayYears UsedDateSmoking Tobacco: NeverSmokeless Tobacco: NeverAlcohol UseStandard Drinks/WeekCommentsNo0 (1 standard drink = 0.6 oz pure alcohol)Sex and Gender InformationValueDate RecordedSex Assigned at BirthNot on fileLegal CapOrfu84/02/2012 10:18 AM ESTGender IdentityNot on fileSexual OrientationNot on file Last Filed Vital Signs Vital SignReadingTime TakenCommentsBlood Zwzhiama404/77010/17/2012 12:30 PM EST Alkxe908110/17/2012 12:30 PM YEMPalrwppfszb92.9 ??C (98.4 ??F)10/17/2012 10:20 AM ESTRespiratory Gbfl931610/17/2012 12:30 PM ESTOxygen Rmnqtktobx57%10/17/2012 12:30 PM ESTInhaled Oxygen Concentration--Xvdskv13.6 kg (160 lb)01/08/2015 3:25 PM EDT Teyegl443.3 cm (5' 11 )01/08/2015 3:25 PM EDTBody Mass Index22.32001/08/2015 3:25 PM EDT Plan of Treatment Health MaintenanceDue DateLast DoneCommentsAnxiety Ormzbefjr43/30/2012Depression Qefbgyokk87/30/2012HIV Lczqxoonp54/30/2012Hepatitis C Qcygrsbru85/30/2012 DTaP,Tdap,Td Vaccine (1 - Tdap)2013Hepatitis B Vaccine (1 of 3 - 19+ 3- dose series)2013HPV Vaccine (1 - 3-dose SCDM series)2021ovid-19 Vaccine ( - 2024- season)2025Influenza Vaccine (#1)2025 Medical Devices ImplantedTypeAreaManufacturerDevice IdentifierShelf Expiration DateModel / Serial / LotBtn Fix Ebtn Cl Ult 20mm Preld - [id number] [facility]planted:Qty[facility]Right: Bone - KneeSMITH & NEPHEW [id number] / / [id number] Implant - [id number] Implanted:Qty: 2 [facility]17/2012 [facility]ImplantRight: Bone - KneeSMITH & [id number] / / [id number]:ultraft fix curved needle delivery system, split cannula Yla-Pc-B-Kind Implant - [id number] Implanted:Qty: 1 [facility]17/2012 [facility]ImplantRight: Bone - KneeSMITH & [id number] / / [id number]:jerri fast-fix straight needle delivery system, split cannula Stpl Bn Sm Reg Spik 23.22x7.94 - [id number] Implanted:Qty: 2 on 10/17/2012 [facility]StapleRight: Bone - KneeSMITH & NEPHEW [id number] / / ExplantedTypeAreaManufacturerDevice IdentifierShelf Expiration DateModel / Serial / LotPin Fix 2.4mm 1 End Troc Pt - [id number] Explanted:Qty: 3 on 10/17/2012 [facility]ChaunceyRight: Ephraim WEISS [id number]/16/[id number] / / [id number]
== END 2025-08-17 07:54 | disposition home or self-care (01) ==
LOC: PST 07:53
PROVIDERS: PCP Internal Medicine; Visit Provider Urology
DX: Z01.818 Encounter for other preprocedural examination (principal); E29.1 Testicular hypofunction

== ENCOUNTER 2025-08-30 08:26 | Day surgery (SDC) | payer OTHER, SELFPAY ==
[2025-08-30] VITALS (17 sets, daily range): BP systolic 75–143; BP diastolic 40–89; PULSE 66–94; TEMP 36.3; O2SAT 90–100; BMI 28.2
--- OUTSIDE RECORDS SUMMARY | 2025-08-30 08:30 | XMS_ITS | CCD ---
Author Organization [facility] Care Team Providers Care Dredgemaster Name Role Phone Surendra Oliveira Unavailable GUANAKITO LEWIS Primary Care Physician [phone] TEE, DR CHANDLER Attending Unavailable TEE, DR CHANDLER Consulting Unavailable TEE, DR CHANDLER Admitting Unavailable TEE, DR CHANDLER Attending Unavailable TEE, DR CHANDLER Consulting Unavailable TEE, DR CHANDLER Admitting Unavailable SURENDRA OLIVEIRA Primary Care Physician Roque WASHINGTON Attending Unavailable WASHINGTON, Roque Medina [...] [No Known Medication Allergies]Propensity to adverse reactions (disorder)[facility] Repository Medications Current Medications MedicationDrug Class(es)DatesSig (Normalized)Sig (Original)aluminum chloride 200 mg/ml topical solution (4 sources)Start: 42-88-1131Sjbrne 20 % 1 application at bedtime Externally q HS x 3 days then twice weekly for 30 days Activecephalexin 500 mg oral capsule (1 source)Cephalosporin AntibacterialStart: 07-20-2025 End: 96-05-7851ssvb 1 capsule by mouth every twelve hoursKeflex 500 mg Cap 500 mg = 1 cap(s), Oral, q12hr, Start morning of the procedure., X 5 day(s), # 10 cap(s), Refills(s) 0, Pharmacy: [facility]/pharmacy #[id number], 177, cm, 07/20/25 10:11:00 EDT, Height/Length Dosing, 91.7, kg, 07/20/25 10:11:00 EDT, Weight Dosing Start Date: 07/20/25 Stop Date: 07/25/25 Status: Ordered Quantity: 10.0 Unit: cap(s) Repeat number: 1predniSONE 20 mg oral tablet (1 source)Start: 34-40-4416lxksnjQFAK 20 MG 1 tablet tid w/ food x 2 days then bid w/ food x 2 days then qd w/ food x 2 days Orally as directed for 6 days Apr, ActivetiZANidine 4 mg oral tablet (1 source)Central alpha-2 Adrenergic AgonistStart: 92-45-6154ivXEUqpsre HCl 4 MG 1/2 - 1 Orally every 8 hours as needed, may cause sedation for 5 days Apr, Active Problems Problem ClassificationProblemDateDocumented DateEpisodic/ChronicContraceptive and procreative management (1 source)Contraception status; Translations: [Encounter for other general counseling and advice on contraception]Onset: 61-27-8141NiedtydrFzbyiblcrfnnd symptoms and ill-defined conditions (1 source)Microscopic hematuria; Translations: [Other microscopic hematuria] Onset: 93-68-3795HuodgfbhKicvupep; including migraine (4 sources)Migraine; Translations: [Migraine, unspecified, not intractable, without status migrainosus]ChronicMalaise and fatigue (5 sources)Other fatigue; Translations: [OTHER FATIGUE]Onset: 00-48-3228Thvtbxwb Other endocrine disorders (1 source)Testicular hypofunction; Translations: [Testicular hypofunction]Onset: 62-81-5060TybhhfrSzjpe male genital disorders (2 sources)Hrcscnled29-30-8474QbmlywiSykox male genital disorders (2 sources)H/O: male genital disorder; Translations: [Personal history of other diseases of male genital organs]Onset: 44-06-7769IvabfvybWlusj nutritional; endocrine; and metabolic disorders (1 source)OverweightEpisodicOther skin disorders (1 source)Primary focal hyperhidrosis, axillaEpisodicOther upper respiratory disease (4 sources)Allergic rhinitis due to pollen; Translations: [Allergic rhinitis due to pollen]ChronicResidual codes; unclassified (2 sources)Reduced mugpsk86-14-2500PvonmkdwJdtzlodmomh; intervertebral disc disorders; other back problems (2 sources)Acute back pain with sciatica; Translations: [Lumbago with sciatica, left side]EpisodicSprains and strains (4 sources)Strain of muscle, fascia and tendon of the posterior muscle group at thigh level, left thigh, initial encounter; Translations: [Tear of left hamstring, initial encounter]Episodic Results Test NameValueInterpretationReference RangeFacilityC Urineon 11-63-5496Tjmtquzj identified Cx Nom (U)Microbiology PROCEDURE: Urine Culture [R1] SOURCE: U CleanCatch BODY SITE: COLLECTED DATE/TIME: 07/20/2025 11:20 EDT RECEIVED DATE/TIME: 07/20/2025 17:40 EDT START DATE/TIME: 07/20/2025 17:40 EDT FREE TEXT SOURCE: KOLE ESTRADA, Roque WASHINGTON MD, Roque Medina FINAL REPORTS Final Report [] Verified Date/Time: 07/22/2025 09:21 EDT 500 cfu/ml Mixed skin contaminants Performing Locations R1: This test was performed at: [facility], [address] [place] [address], [id number] , , ClamhyNxlkbsMercy HospitalComment on above:Performed By: #### [id number] #### [facility] [address] [place] [address]Odtzzve Totalon 84-57-6903Jvmozbkdu Anw537 ng/dLInvalid Interpretation Dysd494-301BhvrarParma Community General HospitalComment on above:Result Comment: Adult male reference interval is based on a population of healthy nonobese males (BMI <30) between 19 and 39 years old. Cristina et.al. JCEM 2017,102;7476-4432. PMID: [id number]. Performed at: [facility] [address] [place] [address] [id number] PhD Rolando JerryPerformed By: #### [id number] #### [facility] [address] [place] [address]Mggxgjhapp with Microon 99-87-2602Hlrpu (U)YellowNormalYellow [facility] HospitalComment on above:Order Comment: Order added by Astrid ExpertResult Comment: Microscopic readings are only performed on those samples that meet specific criteria set forth by [facility].Performed By: #### [id number] #### [facility] [address] [place], [place] [address]Fvybbpe (U) [Mass/Vol]NegativeNormalNegativeParma Community General HospitalComment on above:Order Comment: Order added by Astrid Expert Performed By: #### [id number] #### [facility] [address] [place], [place] [address]Qnnhtas Ql (U)NegativeNormalNegSelect Medical [facility] Comment on above:Order Comment: Order added by Astrid ExpertPerformed By: #### [id number] #### [facility] [address] [place], [place] [address]WM Blood1+ mg/dLAbnormCenterville Comment on above:Order Comment: Order added by Astrid ExpertPerformed By: #### [id number] #### [facility] [address] [place], [place] [address]VI ClarityClearNormalClearParma Community General HospitalComment on above:Order Comment: Order added by Astrid ExpertPerformed By: #### [id number] #### [facility] [address] [place], [place] [address]JK Leuk EstNegativeNormalNegSelect Medical [facility] Comment on above:Order Comment: Order added by Astrid ExpertPerformed By: #### [id number] #### [facility] [address] [place], [place] [address]SM Mucous2+ CD:[id number] [facility]itus Medical CenterComment on above:Order Comment: Order added by Astrid ExpertPerformed By: #### [id number] #### [facility] [address] [place], [place] [address]DF NitriteNegativeNormalNegativePar[facility] Hospital Comment on above:Order Comment: Order added by Astrid ExpertPerformed By: #### [id number] #### [facility] [address] [place], [place] [address]SI pH5.5Invalid Interpretation Code5.0-9.0[facility] HospitalComment on above:Order Comment: Order added by Astrid ExpertPerformed By: #### [id number] #### [facility] [address], [place] [address]OT ProteinTraceAbnormalNegativeParma Community General Hospital Comment on above:Order Comment: Order added by Astrid ExpertPerformed By: #### [id number] #### [facility] [address] [place] [address]EW BJJ0-52Rziblgqm4-5Oayors [facility] Maryland Medical CenterComment on above:Order Comment: Order added by Astrid ExpertPerformed By: #### [id number] #### [facility] [address] [place], [place] [address]IQ Spec Grav1.025Invalid Interpretation Code1.005-1.030[facility] HospitalComment on above:Order Comment: Order added by Astrid ExpertPerformed By: #### [id number] #### [facility] [address] [place], [place] [address]YX Squam Epithelial0-2Invalid Interpretation CodeParma Community General HospitalComment on above:Order Comment: Order added by Astrid Expert Performed By: #### [id number] #### [facility] [address] [place], [place] [address]HS UrobilinogenNegativeNormalNegativeParma Community General HospitalComment on above:Order Comment: Order added by Astrid ExpertPerformed By: #### [id number] #### [facility] [address] [place], [place] [address]AL VFQ6-9Mlxwgr1-7QmtzbbCleveland Clinic South Pointe HospitalComment on above: Order Comment: Order added by Astrid ExpertPerformed By: #### [id number] #### [facility] [address] [place], [place] [address]Fmvhkhomdhop (U) [Mass/Vol]NegativeNormalNegativeParma Community General HospitalComment on above:Order Comment: Order added by Astrid Expert Performed By: #### [id number] #### [facility] [address] [place], [place] [address]Nmymlumhvy with Micro SPon 91-82-1273EP Spec DescClean Catch NormalParma Community General HospitalComment on above:Performed By: #### [id number] #### [facility] [address] [place], [place] [address]Ycyksed Office/Clinic Noteon 27-24-5798Fhfuuay Office/Clinic NoteUrology Office/Clinic Note Chief Complaint vasectomy [...] other meds sent to [facility]. Will need drivers license examiner if Valium is taken. 2. Microhematuria (R31.29: [...] Urology [address], [place] [address]- Additional Instructions: schedule Vasectomy Patient Education Contraception [...] Dipstick: 1+ (30 mg/dl) (07/20/25 10:15:00) Specific [place] Urine Dipstick: 1.025 (07/20/25 10:15:00) Urine Appearance Urine Dipstick: Clear (07/20/25 10:15:00) Urine (more content not included)...[facility] HospitalComment on above:Result Comment: Electronically Signed By: Roque WASHINGTON MD\.br\Date and Time Signed: 07/20/25 11:25 EDT\.br\Electronically Co-Signed By: Sharla Trent\.br\Date and Time Co-Signed: 07/20/25 11:17 EDT\.br\Electronically Co- Signed By: Sharla Trent\.br\Date and Time Co-Signed: 07/20/25 11:23 EDT TESTOSTERONE, TOTALon 68-17-6447Dwkreydkiwss [Mass/Vol]319 ng/eMQkuede931-366Vgs [facility] AndersonComment on above:Result Comment: Adult male reference interval is based on a population of healthy nonobese males (BMI <30) between 19 and 39 years old. jennifer Evans.al. JCEM 2017,102;7731-0476. PMID: [id number].Performed By: #### TESTTOT #### [facility] [address] [place] [address] Dr. Tawny Torre AUTO DIFFon 10-72-5371YING #0.0 103/ulNormal0.0-0.1The [facility] - AndersonComment on above:Performed By: #### CBC #### [facility] [address] [place] [address] Dr. Tawny CooleyBasophils/100 WBC (Bld)0.5 %Normal0.2-2.0The [facility] Comment on above:Performed By: #### CBC #### [facility] [address] [place] [address] Dr. Tawny Schreiber #0.2 103/ulNormal0.0-0.7The [facility] - AndersonComment on above: Performed By: #### CBC #### [facility] [address] [place] [address] Dr. Tawny Ritchieosinophils/100 WBC (Bld)2.9 %Normal0.9-7.0The [facility] Comment on above:Performed By: #### CBC #### [facility] [address] [place] [address] Dr. Tawny Ritchierythrocyte distribution width (RBC) [Ratio]12.3 %Vgapgu74.0-15.0 The [facility] - AndersonComment on above:Performed By: #### CBC #### [facility] [address] [place] [address] Dr. Tawny CooleyHematocrit (Bld) [Volume fraction]47.1 %Vexhhl38.0-54.0The [facility] - AndersonComment on above:Performed By: #### CBC #### [facility] [address] [address] [address] Tawny CooleyHemoglobin (Bld) [Mass/Vol]15.7 g/vIDiviuj98.0-18.0The [facility] on above:Performed By: #### CBC #### [facility] [address] [address] [address] Tawny Moreno #0.00 10e3/ulNormal0.00-0.03The [facility] AndersonComselect specialty hospital on above:Performed By: #### CBC #### [facility] [address] [place] [address] Dr. Tawny Moreno %0.0 %Normal0.0-0.5The [facility] on above: Performed By: #### CBC #### [facility] [address] [place] [address] Dr. Tawny Carballo #2.1 103/ulNormal1.2-3.8The [facility] on above:Performed By: #### CBC #### [facility] [address] [place] [address] Dr. Tawny Cevalloshocytes/100 WBC (Bld)34.9 %Msetdj39.5-60.0The [facility] on above:Performed By: #### CBC #### [facility] [address] [address] [address] Tawny FaustinUAL DIFF REQNONormalThe [facility] - AndersonComment on above: Performed By: #### CBC #### [facility] [address] [place] [address] Dr. Tawny Carmen (RBC) [Entitic mass]30.2 pxOiaaxt69.9-34.0The [facility] on above:Performed By: #### CBC #### [facility] [address] [place] [address] Dr. Tawny Carmen (RBC) [Mass/Vol]33.3 g/aVWrgjsk08.9-35.2The [facility] HospitalComment on above:Performed By: #### CBC #### [facility] [address] [address] [address] Tawny CarmenV (RBC) [Entitic vol]90.6 bJOtsucv13.0-94.0The [facility] AndersonComment on above:Performed By: #### CBC #### [facility] [address] [place] [address] Dr. Tawny Jain #0.7 103/ulNormal0.3-0.8The [facility] - AndersonComment on above:Performed By: #### CBC #### [facility] [address] [place] [address] Dr. Tawny Cartyocytes/100 WBC (Bld)12.1 %Critically high1.7-12.0The [facility] - AndersonComment on above:Performed By: #### CBC #### [facility] [address] [place] [address] Dr. Tawny Núñez #2.9 103/ulNormal1.4-6.5The [facility] - AndersonComment on above:Performed By: #### CBC #### [facility] [address] [place] [address] Dr. Tawny Austinutrophils/100 WBC (Bld)49.6 %Dgdxpm54.0-75.0The [facility] - AndersonComment on above:Performed By: #### CBC #### [facility] [address] [place] [address] Dr. Tawny Villalet mean volume (Bld) [Entitic vol]9.7 fLNormal9.5-13.5The [facility] - AndersonComment on above:Performed By: #### CBC #### [facility] [address] [place] [address] Dr. Tawny ColoeyPLT345 103/lzTcgzbi088-840Tku [facility] - AndersonComment on above: Performed By: #### CBC #### [facility] [address] [place] [address] Dr. Tawny CooleyRBC5.20 106/ulNormal4.70-6.10The [facility] on above:Performed By: #### CBC #### [facility] [address] [address] [address] Tawny CooleyWBC5.9 103/ulNormal4.0-11.0The [facility] on above: Performed By: #### CBC #### [facility] [address] [address] [address] Tawny CejaID PROFILEon 54-85-4845KHZM-HDL RATIO NORMSEE [facility] on above:Result Comment: 3.3 - 4.4 LOW RISK 4.4 - 7.1 AVERAGE RISK 7.1 - 11.0 MODERATE RISK >11.0 HIGH RISKPerformed By: #### TSH, CMP, LIPID #### [facility] [address] [place] [address] Dr. Tawny CooleyCholesterol [Mass/Vol]203 mg/dLCritically high<=200The [facility] on above:Performed By: #### TSH, CMP, LIPID #### [facility] [address] [place] [address] Dr. Tawny Olsonesterol in HDL [Mass/Vol]47 mg/wIEfzpre98-87Rqh [facility] on above:Performed By: #### TSH, CMP, LIPID #### [facility] [address] [place] [address] Dr. Tawny Olsonesterol in LDL [Mass/Vol]135.4 mg/dLWVUMedicine Barnesville Hospital on above:Performed By: #### TSH, CMP, LIPID #### [facility] [address] [place] [address] Dr. Tawny Olsonestertawny.total/Cholesterol in HDL [Mass ratio]4.3 {ratio} NormalProtestant Hospital on above:Performed By: #### TSH, CMP, LIPID #### [facility] [address] [place] [address] Dr. Tawny Toussaint NORMAL> or = 60 mg/dl - LOW CARDIOVASCULAR RISK <40 mg/dl - HIGH CARDIOVASCULAR RISKNoKettering Health PrebleComment on above:Performed By: #### TSH, CMP, LIPID #### [facility] [address] [address] [address] Tawny Cullen CALC NORMALSEE BELOWUniversity Hospitals Parma Medical CenterComment on above:Result Comment: <100 mg/dl OPTIMAL 100 - 129 mg/dl NEAR OR ABOVE OPTIMAL 130 - 159 mg/dl BORDERLINE HIGH 160 - 189 mg/dl HIGH >190 mg/dl VERY HIGH Performed By: #### TSH, CMP, LIPID #### [facility] [address] [address] [address] Tawny CooleyTriglyceride [Mass/Vol]103 mg/dLNormal<=150The [facility] Comment on above:Performed By: #### TSH, CMP, LIPID #### [facility] [address] [address] [address] Tawny CooleyVLDL CALC20.6 mg/dLNoKettering Health PrebleComment on above: Performed By: #### TSH, CMP, LIPID #### [facility] [address] [place] [address] Dr. Tawny CooleyPRONazia 14(COMP METB)on 52-29-8365Hmhbqie [Mass/Vol]4.0 g/dLNormal 3.4-5.0The [facility] on above:Performed By: #### TSH, CMP, LIPID #### [facility] [address] [address] [address] Tawny CooleyAlbumin/Globulin [Mass ratio]1.1 {ratio}NormalThe [facility] AndersonComselect specialty hospital on above:Performed By: #### TSH, CMP, LIPID #### [facility] [address] [address] [address] Tawny Rico [Catalytic activity/Vol]103 U/FMxyoqq36-185Erh [facility] on above:Performed By: #### TSH, CMP, LIPID #### [facility] [address] [address] [address] Tawny Curran [Catalytic activity/Vol]37 U/SLjdcoa17-92Myi [facility] HospitalComment on above:Performed By: #### TSH, CMP, LIPID #### [facility] [address] [address] [address] Tawny Marques gap [Moles/Vol]12.9 mmol/LNormalThe [facility] Comment on above:Performed By: #### TSH, CMP, LIPID #### [facility] [address] [place] [address] Dr. Tawny CooleyAST [Catalytic activity/Vol]15 U/YPqyxsk01-06Ytl [facility] - AndersonComment on above:Performed By: #### TSH, CMP, LIPID #### [facility] [address] [place] [address] Dr. Tawny CooleyBilirubin [Mass/Vol]0.4 mg/dLNormal0.2-1.0[facility] Comment on above:Performed By: #### TSH, CMP, LIPID #### [facility] [address] [place] [address] Dr. Tawny CooleyCalcium [Mass/Vol]9.0 mg/dLNormal8.5-10.1The [facility] Comment on above:Performed By: #### TSH, CMP, LIPID #### [facility] [address] [place] [address] Dr. Tawny CooleyChloride [Moles/Vol]105 mmol/NOvfpdw35-095Ltc [facility] Comment on above:Performed By: #### TSH, CMP, LIPID #### [facility] [address] [place] [address] Dr. Tawny CooleyCO2 [Moles/Vol]28.1 mmol/XFbfrio62.0-32.0The [facility] Comment on above:Performed By: #### TSH, CMP, LIPID #### [facility] [address] [place] [address] Dr. Tawny CooleyCreatinine [Mass/Vol]0.99 mg/dLNormal0.70-1.30The [facility] AndersonComment on above:Performed By: #### TSH, CMP, LIPID #### [facility] [address] [place] [address] Dr. Yilan ChangEGFR-AF KAZAKH>60Normal>=60The [facility] - AndersonComment on above:Performed By: #### TSH, CMP, LIPID #### [facility] [address] [place] [address] Dr. Tawny RitchieGFR-NON AF KAZAKH>60Normal>=60The [facility] - AndersonComment on above:Performed By: #### TSH, CMP, LIPID #### [facility] [address] [place] [address] Dr. Tawny CooleyGlobulin (S) [Mass/Vol]3.8 g/dLNormalThe [facility] AndersonComment on above:Performed By: #### TSH, CMP, LIPID #### [facility] [address] [place] [address] Dr. Tawny CooleyGlucose [Mass/Vol]85 mg/mNXeevsu51-394WugCleveland Clinic [facility]inte Hospital Comment on above:Performed By: #### TSH, CMP, LIPID #### [facility] [address] [place] [address] Dr. Tawny CooleyPotassium [Moles/Vol]4.0 mmol/LNormal3.5-5.1The [facility] Comment on above:Performed By: #### TSH, CMP, LIPID #### [facility] [address] [place] [address] Dr. Tawny CooleyProtein [Mass/Vol]7.8 g/dLNormal6.4-8.2[facility] Comment on above:Performed By: #### TSH, CMP, LIPID #### [facility] [address] [place] [address] Dr. Tawny CooleySodium [Moles/Vol]142 mmol/TIdetml799-007SmqCleveland Clinic [facility]inte Hospital Comment on above:Performed By: #### TSH, CMP, LIPID #### [facility] [address] [place] [address] Dr. Tawny CooleyUrea nitrogen [Mass/Vol]11.0 mg/dLNormal7.0-18.0The [facility] AndersonComment on above:Performed By: #### TSH, CMP, LIPID #### [facility] [address] [place], [place] [address] Dr. Tawny CooleyUrea nitrogen/Creatinine [Mass ratio]11.1 mg/mgNormalThe [facility] AndersonComment on above:Performed By: #### TSH, CMP, LIPID #### [facility] [address] [place], [place] [address] Dr. Tawny Lynn 43-93-4165DDC0.872 uIU/mLNormal0.358-3.740The [facility] - AndersonComment on above:Performed By: #### TSH, CMP, LIPID #### [facility] [address] [place], [place] [address] Dr. Tawny CooleyTSH0.872 uIU/mL0.358-3.740 uIU/mLNorth SuperLikers Other tsChickasaw Nation Medical Center – Ada noteNort SuperLikers Other Vital Signs Date TimeVital SignValuePerforming OuddzfxvlZqblkjbq21-34-5178 13:15-0400Body .34 cmBenjamin Ball Other [employer] Other 07-11-2023 13:15-0400Body mass index (BMI) [Ratio] 27.67 kg/n3Xohwnouf Ball Other [employer] Other 07-11-2023 13:15-0400Body jxmfut34.99 kgBenjamin Ball Other [employer] Other 07-11-2023 13:15-0400Diastolic blood mm[Hg] Surendra Ball Other [employer] Other 07-11-2023 13:15-0400Respiratory rate12 /minBenjamin Ball Other [employer] Other 07-11-2023 13:15-0400Systolic blood jpwwxenx784 mm[Hg] Surendra Ball Other [employer] Other 01-27-2023 16:30-0500Body .34 cmBenjamin Ball Other [employer] Other 01-27-2023 16:30-0500Body mass index (BMI) [Ratio] 28.42 kg/m7Qisorrxl Ball Other [employer] Other 01-27-2023 16:30-0500Body gnirrq91.44 kgBenjamin Ball Other [employer] Other 01-27-2023 16:30-0500Diastolic blood vrkljcte90 mm[Hg] Surendra Ball Other [employer] Other 01-27-2023 16:30-0500Respiratory rate18 /minBenjamin Ball Other [employer] Other 01-27-2023 16:30-9205RhJ4% (BldA) [Mass fraction]93 % Surendra Ball Other [employer] Other 01-27-2023 16:30-0500Systolic blood cpxmfviu115 mm[Hg] Surendra Ball Other [employer] Other Encounters Encounter DateEncounter TypeCare ProviderFacilityStart: 73-94-8776ogtyjyelti Roque WASHINGTONFacility:CD:[id number]: 07-31-2025 End: 75-44-9871ssmnxmcbkfAmolzvi R WATERSFacility:CD:[id number]: 07-20-2025 End: 26-67-8564dwepupgzjdMlfncbt R WATERSFacility:FTMCStart: 07-20-2025 End: 18-64-7822nnnncjskuwZkpausg R WATERSFacility:EU TrihealthueStart: 07-20-2025 End: 70-53-0157Wgcsynk encounter procedurePatricerin R KOLE [facility] start: 53-98-8299qfhkhstvcfJjcvrna WATERSFacility:EU [facility] Centertart: 04-20-2023 End: 29-37-4254bmwlrzuktyZfhfdkye Ball Other Immediately [employer] Other Start: 75-85-8510Nmbkoi outpatient visit 15 minutes Surendra BallFPG Ball [facility] ClinicStart: 02-11-2023 End: 20-89-1588Vbdugou encounter procedureGUANAKITO Mary JOSHUA [facility] Start: 02-06-2023 End: 98-81-5828jbwollogkyFQ SURENDRA BALLFacility:Y1Buoyx: 02-04-2023 End: 61-27-4622yiqxwhsjreCkvbaspz Ball Other [facility] Other Start: 07-57-1765Yknlcgjfm encounterBenjamin BallFPG Ball Medical ClinicStart: 38-03-8454Ymffgkqyr for general adult medical examination without abnormal findingsDR SURENDRA OLIVEIRACherrington Hospitaltart: 11-11-2022 End: 31-72-4582pxkzdlvhpxPX SURENDRA BALLFacility:Q1Iqtxe: 11-11-2022 End: 70-51-4712Uovdcviis for general adult medical examination without abnormal findingsDR SURENDRA BALLFacility:C5Rwgfo: 11-09-2022 End: 28-33-2949ffnmlxtxgiDilckqdg Ball Other [facility] Other Start: 69-86-3026Gphdznwnl encounterBenjamin BallFPG [facility] ClinicStart: 11-06-2022 End: 22-06-6287iixuqgsxocPrmiqjwa Ball Other [facility] [employer] Other Start: 72-85-7919Vwbiujxyk for general adult medical examination without abnormal findingsSurendra Oliveira [facility] ClinicStart: 68-33-7182Zlqyvwp encounter procedureBetano Oliveira Medical ClinicStart: 91-58-2799Pspxthur preventive med est patient 18-39 yrsBemar OliveiraCOBRE [facility]LEY [facility] Plan of Treatment DateCare ActivityDetailAuthorStart: 17-49-8782lnctczxzrtExfcnqzlfpNlytctrc:[place] Payers DatePayer CategoryPayerPolicy [id number] [id number] 2.0.1.566042.3.57[id number] 2.0.1.094705.3.57[id number] 2.0.1.324441.3.57[id number] 2.0.1.618586.3.57[id number] 2.0.1.320855.3.57[id number] 2.0.1.839556.3.57[id number] 2.840.1.990306.19 Private Health [id number] Social History DateTypeDetailFacilitySex Assigned At [facility] Healthcaretart: 02-11-2023 End: 43-16-9861Erlkrec smoking statusNever smoked tobacco (finding)[facility] smoking statusNeverK[facility] Health MiamisburgSexual OrientationExec[facility] sexMale (finding)[facility] Clinical Notes 11-06-2022 to 07-20-2025 Note Date & LdzkRpmeNxaugblo88-75-5538 Hospital Discharge instructions Patient Education 07/20/2025 11:15:41 [...] provider. Document Revised: 03/03/2021 Document Reviewed: 03/03/2021 [employer] Patient Education 2023 Pops. Follow Up Care 06/28/2025 10:38:45 With:KOLE ESTRADA, Roque Medina, URL Address: [facility] [address] [place] [address]- When: Unknown [facility] 10-10-2025 NotePatient Education Obstetrics and Gynecology [...] sperm (vasectomy). After t (more content not included)...[facility]07-11-2023 Evaluation note* Encounter Date Diagnosis Assessment [...] Tylenol as needed. PT if no improvement [facility] Other 05-04-2023 Evaluation + Plan note Diagnostic Tests Pending * Estrogens Total 02/11/23 * Estradiol Level 02/11/23 * Testosterone F&T 02/11/[address] [facility]04-27-2023 Evaluation note* Encounter Date Diagnosis Assessment Notes Treatment Notes Treatment Clinical Notes Jan, Fatigue, unspecified type (ICD-1 0 - R53.83) [facility] Other 01-27-2023 Evaluation note* Encounter Date Diagnosis [...] Oct,nnual physical exam (ICD-10 - Z00.00) [facility] [employer] Other Evaluation + Plan note Future Appointments Appointment Date:08/13/2025 03:30:00 PM Scheduled Provider:Roque WASHINGTON MD Location:[facility] Appointment Type:URO Office Visit [facility] evaluation noteNo InformationNortTemple University Health System [employer] Other History general Narrative - Reported* Type Description Date Medical History Tear of left hamstring, initial encounter Medical HistorySeasonal allergic rhinitis due to pollenMedical HistoryMigraine Hospitalization HistoryNo Hospitalization history information [facility] Other History general Narrative - Reported* Type Description Date Medical History Tear of left hamstring, initial encounter Medical HistorySeasonal allergic rhinitis due to pollenMedical HistoryMigraine Hospitalization HistoryNo know Hospitalization history [place] [employer] Other Hospital course Narrative No data available for this section [facility] Dis[facility] instructions No data available for this section [facility] CenterProgress note No data available for this section [facility] Summary Purpose Family History No Family History [...] Personnel Name: GUANAKITO LEWIS CNP Address: Address: [address] [place] [address] [address] [place] [address] Personnel Name: SURENDRA OLIVEIRA DO Address: [address] [facility], [place], [place] [address] Telecom: (unrecognized sect ion and content) No Status Records FoundNo Status Records FoundNo Status Records FoundNo Status Records FoundNo Status Records FoundNo Status Records FoundNo Status Records Found INFORMATION SOURCE (unrecogn ized section and content) DATE CREATED AUTHOR 02/12/2023 [facility] DATE CREATED AUTHOR AUTHOR'S ORGANIZ ATION 07/22/2025 [facility] DATE CREATED AUTHOR AUTHOR'S ORGANIZ ATION 07/23/2025 [facility] DATE CREATED AUTHOR AUTHOR'S ORGANIZ ATION 07/29/2025 [facility] DATE CREATED AUTHOR AUTHOR'S ORGANIZ ATION 08/04/2025 [facility] DATE CREATED AUTHOR AUTHOR'S ORGANIZ ATION 08/09/2025 [facility] FOR RECORDS PERTAINING TO PATIENTS WHO [...] ON THE PRIMARY CLINICAL RECORDS. [facility]. provides no warranty or guarantee of the accuracy or completeness of information in this document.
--- OUTSIDE RECORDS SUMMARY | 2025-08-30 08:30 | XMS_ITS | Clinical Summary ---
Author Organization [facility] Address [address] [place] [address] Care Team Providers Care Medical Cost Consultant Name Role Phone Unavailable Primary Care Provider Unavailabl e Allergies No known active allergies Medications MedicationSigDispense QuantityRefillsLast FilledStart DateEnd DateStatus naproxen sodium (ALEVE) 220 mg tablet Take 1 tablet by mouth twice daily.ctive Active Problems ProblemNoted DateDiagnosed DateS/P ACL imhuipqsolnjof49/19/2013S/P knee surgery 11/07/2012Sprain of cruciate ligament of knee10/12/2012Torn ACL08/18/2012 Family History Medical HistoryRelationCommentsDiabetesMaternal GrandmotherRelationStatus CommentsMaternal Grandmother Social History Tobacco UseTypesPacks/DayYears UsedDateSmoking Tobacco: NeverSmokeless Tobacco: NeverAlcohol UseStandard Drinks/WeekCommentsNo0 (1 standard drink = 0.6 oz pure alcohol)Sex and Gender InformationValueDate RecordedSex Assigned at BirthNot on fileLegal RidMuvd20/02/2012 10:18 AM ESTGender IdentityNot on fileSexual OrientationNot on file Last Filed Vital Signs Vital SignReadingTime TakenCommentsBlood Cjluphoi998/77010/17/2012 12:30 PM EST Mvzva713310/17/2012 12:30 PM GMTFdaabbzegeb66.9 ??C (98.4 ??F)10/17/2012 10:20 AM ESTRespiratory Ehfs222810/17/2012 12:30 PM ESTOxygen Eisuhkwvjv67%10/17/2012 12:30 PM ESTInhaled Oxygen Concentration--Xkzpgc38.6 kg (160 lb)01/08/2015 3:25 PM EDT Pcpcwe129.3 cm (5' 11 )01/08/2015 3:25 PM EDTBody Mass Index22.32001/08/2015 3:25 PM EDT Plan of Treatment Health MaintenanceDue DateLast DoneCommentsAnxiety Vhfrxalcs05/30/2012Depression Zykqrjmkj36/30/2012HIV Lzhxrubse16/30/2012Hepatitis C Zscarojav45/30/2012 DTaP,Tdap,Td Vaccine (1 - Tdap)2013Hepatitis B Vaccine (1 of 3 - 19+ 3- dose series)2013HPV Vaccine (1 - 3-dose SCDM series)2021ovid-19 Vaccine ( - 2024- season)2025Influenza Vaccine (#1)2025 Medical Devices ImplantedTypeAreaManufacturerDevice IdentifierShelf Expiration DateModel / Serial / LotBtn Fix Ebtn Cl Ult 20mm Preld - [id number] Implanted:Qty: 1 [facility]17/2012 [facility]EndobuttonRight: Bone - KneeSMITH & NEPHEW [id number] / / [id number]-Tc-H-Tjbk Implant - [id number] Implanted:Qty: 2 on 10/17/2012 at [facility]ITALImplantRight: Bone - KneeSMITH & EEDNRT44/[id number] / / [id number]:ultraft fix curved needle delivery system, split cannula Ulr-Jo-B-Kind Implant - [id number] Implanted:Qty: 1 on 10/17/2012 at [facility]ITALImplantRight: Bone - KneeSMITH & [id number] / / [id number]:jerri fast-fix straight needle delivery system, split cannula Stpl Bn Sm Reg Spik 23.22x7.94 - [id number] Implanted:Qty: 2 on 10/17/2012 at [facility]ITALStapleRight: Bone - KneeSMITH & NEPHEW [id number] / / ExplantedTypeAreaManufacturerDevice IdentifierShelf Expiration DateModel / Serial / LotPin Fix 2.4mm 1 End Troc Pt - [id number] Explanted:Qty: 3 on 10/17/2012 at [facility]ITALChaunceyRight: Ephraim WEISS 04/16/[id number] / / [id number]
[2025-08-30] MEDS: CEFAZOLIN SODIUM 2 GM/50 ML D5W PREMIX IV (09:21)
[2025-08-30] MEDS: BACITRACIN OINTMENT 28.4 GM TUBE 1 APPLIC TOPICAL (10:23)
--- NOTE | 2025-08-30 10:28 | P.URON_ITS ---
Urology Surgery Operative Note Operative Note Procedure Date: 08/30/25 Time Out Performed: yes Pre-op Diagnosis: [place] male Post-op Diagnosis: same as pre-op Procedures performed: Bilateral segmental vasectomy Anesthesia: MAC Primary Surgeon: Roque Washington Complications: None Estimated blood loss (mL): 3 Findings: Extremely tight spermatic cord. Specimens: Bilateral vasa segments Drains: None Indications for Procedures: This gentleman has children and is desirous for sterilization. A month ago his bilateral vasectomy was attempted under local in the office but this was unable to be done due to the patient's anatomy. He now presents for bilateral segmental vasectomy under MAC anesthesia. He has signed an informed consent after risks were explained. Detailed description of Procedure: The patient was kept on the gurney bed and brought into the operating room. He was in the supine position. Timeout was done by all parties in the room. We all agreed upon the patient's identification and the planned procedures for this patient. MAC anesthesia was administered. Genitalia were sterilely prepped and draped in the usual fashion. I started by palpating the left hemiscrotum. His spermatic cord was rather tight and it was very difficult to palpate and separate the vas. Eventually, I was able. An incision with a 15 blade scalpel was made in the scrotum over the area of the vas. Blunt dissection was carried down to the vas with the hemostat. The ring forceps was used to grasp the vas. This maneuver was actually difficult due to the tense nature of the spermatic cord. I was then able to free up a loop of vas and hemostat both ends. The loop was cut and sent for permanent sections. The remaining ends of the vasa were then coagulated with the Bovie cautery, tied with 2-0 Vicryl and then the proximal end was everted on itself with 4-0 Vicryl so as to prevent recanalization. Once hemostasis was verified the ends were allowed to fall back in the hemiscrotum. 4-0 Vicryl was used in an interrupted fashion to close the small skin incision. A similar maneuver was done on the contralateral side. At the end of the procedure a bilateral vasectomy was completed. Bacitracin ointment was placed over the incisions. Sterile fluffs were applied and a scrotal support was then placed. The patient was then transferred to PACU in stable condition.
--- NOTE | 2025-08-30 12:12 | PC.NURSE ---
Patient was given discharge instructions and they were reviewed with patient and family. Patient verbalizes understanding
== END 2025-08-30 12:08 | disposition home or self-care (01) ==
LOC: SURGOUT 08:27
PROVIDERS: PCP Internal Medicine; Visit Provider Urology
PROC: (CPT 921; principal; 2025-08-30 09:30)
DX: Z30.2 Encounter for sterilization (principal); E29.1 Testicular hypofunction; N52.9 Male erectile dysfunction, unspecified
CPT/HCPCS: 55250; 88302; J0690; J1885; J2250; J2405; J2704; J3010